=== PATIENT | female | born 1985 | race Caucasian/White ===

== ENCOUNTER 2017-01-14 16:51 | Emergency (ER) | payer MEDICAID ==
[~2017-01-14] VITALS: Ht 162.6 cm; Wt 68.8 kg
[~2017-01-14 16:51] MED LIST: ASPI81TA82 PO; ATOR10 PO; CARD240C6 PO; CARV3.125 PO
[2017-01-14 16:54] VITALS: BP 121/61; PULSE 67; RESP 18; TEMP 98; O2SAT 100
[2017-01-14 18:04] LABS: BACTERIA, URINE MANY /hpf; BLOOD, URINE TRACE (NEG); GLUCOSE,URINE NEG (NEG); KETONE, URINE NEG (NEG); MUCUS URINE MANY /lpf (OCC); NITRITE,URINE NEG (NEG); PH, URINE 5.5 (5.0-8.5); SQUAMOUS EPITHELIAL CELL URINE 6 /hpf (0-5); URINE COLOR YELLOW (YELLW/STRAW)
[2017-01-14 18:06] LABS: COMMENT (UR) CULTURE INDICATED; CULTURE IF INDICATED CULTURE INDICATED
== END 2017-01-14 19:15 | disposition left against medical advice (07) ==
LOC: NED 16:51
DX: R11.10 Vomiting, unspecified (principal); M54.9 Dorsalgia, unspecified; R10.9 Unspecified abdominal pain; B96.1 Klebsiella pneumoniae [K. pneumoniae] as the cause of diseases classified elsewhere; Z53.21 Procedure and treatment not carried out due to patient leaving prior to being seen by health care provider
CPT/HCPCS: 81001; 87077; 87086; 87186; 99281